=== PATIENT | male | born 1990 ===

== ENCOUNTER 2021-04-03 09:02 | Emergency (ER) | payer OTHER, BC ==
[2021-04-03] MEDS: Morphine 2 MG/ML SYRINGE ONE (09:26)
[2021-04-03] MEDS: Morphine 2 MG/ML SYRINGE IM ONE (09:29)
[2021-04-03 09:48] VITALS: PULSE 116
[2021-04-03 11:41] VITALS: BP 158/98
--- NOTE | 2021-04-03 14:47 | CR ---
DATE OF SERVICE: 04/03/2021 CLINICAL DATA: Fall. LEFT WRIST: Comparison is made to a prior exam dated 07/14/2020. There is slight negative ulnar variance. No acute fracture or dislocation. The gap between the lunate and scaphoid carpal bones appear slightly widened on the frontal view. The possibility of scapholunate disassociation should be considered. An MRI scan may be helpful. Otherwise negative. [id number] [facility]
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
== END 2021-04-03 10:28 | disposition home or self-care (01) ==
LOC: LB.ED 09:02
DX: S63.502A Unspecified sprain of left wrist, initial encounter (principal); Z88.0 Allergy status to penicillin; Z88.2 Allergy status to sulfonamides; W13.2XXA Fall from, out of or through roof, initial encounter
CPT/HCPCS: 73110; 99283; J2270

== ENCOUNTER 2022-09-12 11:39 | Emergency (ER) | payer OTHER ==
[2022-09-12 12:04] VITALS: PULSE 84
[2022-09-12] MEDS ORDERED: Diphtheria,Pertussis(Acell),Tetanus Vaccine 0.5 ML Syringe IM ONE (12:41)
[2022-09-12] MEDS ORDERED: Lidocaine 1% with EPINEPHrine 1:100,000 20 ML MDV INJECT ONE (12:43)
[2022-09-12 20:30] VITALS: BP 143/95
== END 2022-09-12 12:22 | disposition home or self-care (01) ==
LOC: LB.ED 11:39
DX: S61.411A Laceration without foreign body of right hand, initial encounter (principal); Z23 Encounter for immunization; Z88.0 Allergy status to penicillin; Z88.2 Allergy status to sulfonamides; W25.XXXA Contact with sharp glass, initial encounter; Y99.0 Civilian activity done for income or pay
CPT/HCPCS: 12002; 90471; 90715; 99282-25